=== PATIENT | male | born 1990 | race Caucasian/White ===

== ENCOUNTER 2017-05-29 17:14 | Emergency (ER) | payer OTHER ==
[~2017-05-29] VITALS: Ht 177.8 cm; Wt 87.1 kg
[2017-05-29 17:17] VITALS: BP_SYST 142
[2017-05-29] MEDS ORDERED: NACL 0.9% 1,000 ML IV ONE (17:27)
[2017-05-29] MEDS ORDERED: ASPIRIN 325 MG TABLET PO ONE (17:30)
[2017-05-29] MEDS ORDERED: LORazepam 2 MG/ML VIAL IVP ONE (17:30)
[2017-05-29 17:46] LABS: BILIRUBIN,URINE NEGATIVE (NEGATIVE); CLARITY/URINE CLEAR (CLEAR); COLOR,URINE YELLOW (YELLOW); GLUCOSE,URINE NEGATIVE (NEGATIVE); KETONES,URINE NEGATIVE (NEGATIVE); LEUKOCYTE ESTERASE ,URINE NEGATIVE (NEGATIVE); NITRITE, URINE NEGATIVE (NEGATIVE); PROTEIN URINE NEGATIVE (NEGATIVE); UROBILINOGEN,URINE 0.2 (0.2-1.0)
[2017-05-29 17:48] LABS: BLOOD, URINE TRACE (NEGATIVE)
[2017-05-29 17:49] LABS: BASOPHILS # (AUTO) 0.1 K/uL (0.0-0.2); BASOPHILS % (AUTO) 0.7 % (0.0-2.0); EOSINOPHILS # (AUTO) 0.4 K/uL (0.0-0.4); EOSINOPHILS % (AUTO) 5.1 % (0.0-4.0); HEMATOCRIT 44.3 % (36-54); HEMOGLOBIN 14.5 g/dL (14.0-18.0); LYMPHOCYTES # (AUTO) 2.7 K/uL (1.0-5.5); LYMPHOCYTES % (AUTO) 31.6 % (20.5-51.5); MEAN CORPUSCULAR HEMOGLOBIN 28 pg (27-31); MEAN CORPUSCULAR HGB CONC 33 % (32-36); MEAN CORPUSCULAR VOLUME 86 fL (79.0-98.0); MONOCYTES # (AUTO) 0.5 K/uL (0.0-1.0); MONOCYTES % (AUTO) 6.3 % (1.7-9.3); NEUTROPHILS % (AUTO) 56.3 % (40.0-70.0); PLATELET COUNT (AUTO) 360 K/uL (130-430); RED BLOOD CELL COUNT(AUTO) 5.16 MIL/uL (4.2-6.2); RED CELL DISTRIBUTION WIDTH 12.8 % (9.0-15.0); WHITE BLOOD COUNT (AUTO) 8.7 K/uL (4.8-10.8)
[2017-05-29 17:54] LABS: BACTERIA,URINE RARE /HPF (None Seen); RBC,URINE 0-3 /HPF (0-3); WBC,URINE 0-3 /HPF (0-3)
[2017-05-29] MEDS ORDERED: LORazepam 2 MG/ML VIAL (FOR ER USE) ONE (18:02)
[2017-05-29 18:04] LABS: CALCIUM 9.6 mg/dL (8.4-11.0); CREATININE 0.88 mg/dL (0.55-1.30); POTASSIUM 3.9 mmol/L (3.5-5.1)
[2017-05-29 18:08] LABS: ALBUMIN 4.1 g/dL (3.4-4.8); TOTAL BILIRUBIN 0.4 mg/dL (0.0-1.0)
[2017-05-29 19:55] VITALS: BP_SYST 132
== END 2017-05-29 19:55 | disposition home or self-care (01) ==
LOC: SED 17:14
DX: R07.89 Other chest pain (principal); R00.2 Palpitations
CPT/HCPCS: 36415; 71045; 80053; 81000; 82150; 82550; 83690; 84484; 85025; 85610; 85730; 93005; 96361; 96374; 99285; J2060; J7030